=== PATIENT | male | born 1970 | race Caucasian/White ===

== ENCOUNTER 2017-08-26 03:24 | Inpatient (IN) | payer MEDICAID, OTHER ==
[2017-08-26] VITALS (8 sets, daily range): BP systolic 120–135; BP diastolic 71–98
[~2017-08-26] VITALS: Ht 177.8 cm; Wt 113.6 kg
[~2017-08-26 03:24] MED LIST: CYCL5TAB10 PO; GABA300C PO; HYDR-3641 PO; IBUP-2029 PO; S350 PO
[2017-08-26] MEDS ORDERED: IPRATROPIUM BROMIDE (0.02%) 0.5MG/2.5ML NEB HHN STA (03:45)
[2017-08-26] MEDS ORDERED: ALBUTEROL (0.083%) 2.5MG/3ML NEB HHN STA (03:45)
[2017-08-26] MEDS ORDERED: METHYLPREDNISOLONE SOD SUCC 125 MG/2 ML VIAL IV STA (03:45)
[2017-08-26] MEDS ORDERED: MAGNESIUM 2 G PREMIX 50 ML IV STA (03:45)
[2017-08-26] MEDS ORDERED: AZITHROMYCIN 500 MG in DEXT 5% WATER 250 ML IV SCH ×2 (04:00→11:00)
[2017-08-26] MEDS ORDERED: MAGNESIUM 1G PREMIX 100ML IV NR ×2 (04:00→05:00)
[2017-08-26] MEDS ORDERED: CEFTRIAXONE 2 G PREMIX 50 ML IV ONE (04:00)
[2017-08-26 04:15] LABS: HEMATOCRIT 41.8 % (42.0-52.0); HEMOGLOBIN 14.1 g/dL (14.0-18.0); MEAN CORPUSCULAR HEMOGLOBIN 30.2 pg (28.0-32.0); MEAN CORPUSCULAR VOLUME 89.7 fL (80.0-94.0); PLATELET 374 x1000/uL (130-400); RED BLOOD CELL COUNT 4.66 mill/uL (4.7-6.1); RED CELL DISTRIBUTION WIDTH 13.6 % (11.6-14.6)
[2017-08-26 04:22] LABS: CHLORIDE 110 mEq/L (98-107)
[2017-08-26] MEDS ORDERED: LIDOCAINE 5% PATCH TOP SCH (05:30)
[2017-08-26] MEDS ORDERED: NITROGLYCERIN 0.4MG TABLET SL SL PRN (08:15)
[2017-08-26] MEDS ORDERED: NA PHOS,M-B/NA PHOS,DI-BA ENEMA 118ML PR PRN (08:15)
[2017-08-26] MEDS ORDERED: DOCUSATE SODIUM 100MG CAPSULE PO PRN (08:15)
[2017-08-26] MEDS ORDERED: ONDANSETRON HCL 4MG/2ML VIAL IV PRN (08:15)
[2017-08-26] MEDS ORDERED: LORAZEPAM 0.5MG TABLET PO PRN (08:15)
[2017-08-26] MEDS ORDERED: IPRATROPIUM/ALBUTEROL 0.5-3(2.5)MG/3ML NEB INH PRN (08:15)
[2017-08-26] MEDS ORDERED: ENOXAPARIN 40MG/0.4ML SYR SUBCUT SCH (08:15)
[2017-08-26] MEDS ORDERED: GUAIFENESIN 200MG/10ML SUGAR FREE UDC PO PRN (08:15)
[2017-08-26] MEDS ORDERED: ACETAMINOPHEN 325MG TABLET PO PRN (08:15)
[2017-08-26] MEDS ORDERED: CLONIDINE 0.1MG TABLET PO PRN (08:15)
[2017-08-26] MEDS ORDERED: DIPHENHYDRAMINE 50MG/ML VIAL IV PRN (08:15)
[2017-08-26] MEDS ORDERED: MAGNESIUM/ALUMINUM HYDROXIDE/SIMETHICONE 30ML UDC PO PRN (08:15)
[2017-08-26 08:59] LABS: ETHANOL BLOOD < 10 mg/dL
[2017-08-26] MEDS ORDERED: POTASSIUM CHLORIDE 20MEQ TABLET SR PO SCH (09:00)
[2017-08-26 09:04] LABS: HDL CHOLESTEROL 21 mg/dL (40-59); LDL CHOLESTEROL 60 mg/dL (5-100)
[2017-08-26] MEDS ORDERED: ONDANSETRON 4MG ODT PO PRN (09:30)
[2017-08-26] MEDS: AZITHROMYCIN 500 MG in DEXT 5% WATER 250 ML IV SCH (11:30)
[2017-08-26] MEDS: CEFTRIAXONE 1 G PREMIX 50 ML IV SCH (12:38)
[2017-08-26] MEDS: ENOXAPARIN 30MG/0.3ML SYR SUBCUT SCH ×2 (12:38→21:18)
[2017-08-26] MEDS: ASCORBIC ACID 500 MG TABLET PO SCH ×2 (12:39→21:00)
[2017-08-26] MEDS: ASPIRIN 325MG EC TABLET PO SCH (12:39)
[2017-08-26] MEDS: GUAIFENESIN/DM 600MG/30MG ER TAB 12HR PO SCH ×2 (12:39→20:43)
[2017-08-26] MEDS: FAMOTIDINE 20MG TABLET PO SCH ×3 (12:40→20:44)
[2017-08-26] MEDS: ZINC SULFATE 220 MG ( 50 ) CAPSULE PO SCH (12:40)
[2017-08-26] MEDS: DILTIAZEM HCL 60MG TABLET PO SCH ×2 (12:41→18:00)
[2017-08-26] MEDS: METHYLPREDNISOLONE SOD SUCC 125 MG/2 ML VIAL IV SCH ×2 (13:35→21:20)
[2017-08-26] MEDS: IPRATROPIUM/ALBUTEROL 0.5-3(2.5)MG/3ML NEB HHN SCH ×2 (15:30→20:44)
[2017-08-26 15:35] LABS: CREATINE KINASE 31 IU/L (39-308)
[2017-08-26 15:36] LABS: CREATINE KINASE MB FRACTION < 0.5 ng/mL (0.5-3.6)
[2017-08-26] MEDS: KETOROLAC 15MG/ML VIAL IV PRN (20:29)
[2017-08-26] MEDS ORDERED: ZOLPIDEM TARTRATE 5MG TABLET PO PRN (21:00)
[2017-08-26 23:10] LABS: CREATINE KINASE 34 IU/L (39-308)
[2017-08-26 23:11] LABS: CREATINE KINASE MB FRACTION < 0.5 ng/mL (0.5-3.6)
[2017-08-27] VITALS (8 sets, daily range): BP systolic 125–154; BP diastolic 45–97
[2017-08-27] MEDS: DILTIAZEM HCL 60MG TABLET PO SCH ×3 (00:10→11:33)
[2017-08-27] MEDS: IPRATROPIUM/ALBUTEROL 0.5-3(2.5)MG/3ML NEB HHN SCH ×4 (00:14→12:01)
[2017-08-27] MEDS: KETOROLAC 15MG/ML VIAL IV PRN (03:39)
[2017-08-27] MEDS: METHYLPREDNISOLONE SOD SUCC 125 MG/2 ML VIAL IV SCH (06:38)
[2017-08-27] MEDS: CEFTRIAXONE 1 G PREMIX 50 ML IV SCH (08:46)
[2017-08-27] MEDS: GUAIFENESIN/DM 600MG/30MG ER TAB 12HR PO SCH (08:46)
[2017-08-27] MEDS: ASPIRIN 325MG EC TABLET PO SCH (08:46)
[2017-08-27] MEDS: ASCORBIC ACID 500 MG TABLET PO SCH (08:46)
[2017-08-27] MEDS: ZINC SULFATE 220 MG ( 50 ) CAPSULE PO SCH (08:46)
[2017-08-27] MEDS: ENOXAPARIN 30MG/0.3ML SYR SUBCUT SCH (08:46)
[2017-08-27] MEDS: AZITHROMYCIN 500 MG in DEXT 5% WATER 250 ML IV SCH (11:32)
== END 2017-08-27 13:00 | disposition home or self-care (01) | DRG 141 ==
LOC: ER 03:24 → 5EST 04:05 → EDBEDREQ 04:08 → ENRESERV 04:49
PROVIDERS: ADMIT Internal Medicine; ATTEND Internal Medicine
PROC: 5A09357 Assistance with Respiratory Ventilation, Less than 24 Consecutive Hours, Continuous Positive Airway Pressure (ICD-10-PCS; principal; 2017-08-26)
PROC: 5A09357 Assistance with Respiratory Ventilation, Less than 24 Consecutive Hours, Continuous Positive Airway Pressure (ICD-10-PCS; 2017-08-27)
DX: J45.901 Unspecified asthma with (acute) exacerbation (principal); J96.90 Respiratory failure, unspecified, unspecified whether with hypoxia or hypercapnia; J18.9 Pneumonia, unspecified organism; E44.0 Moderate protein-calorie malnutrition; F17.210 Nicotine dependence, cigarettes, uncomplicated; E87.6 Hypokalemia; Z68.35 Body mass index [BMI] 35.0-35.9, adult; Z71.6 Tobacco abuse counseling
CPT/HCPCS: 36415; 71045; 80053; 80061; 82550; 82553; 83036; 83605; 84484; 85027; 87040; 93970; 96365; 96366; 96367; 96375; 99291; G0482; J0456; J0696; J1650; J1885; J2930; J3475; J7040; J7060; J7611; J7620

== ENCOUNTER 2024-08-05 04:50 | Inpatient (IN) | payer MEDICAID ==
[~2024-08-05] VITALS: Ht 177.8 cm; Wt 113.9 kg
[~2024-08-05 04:50] MED LIST changes: +CARI-518 PO; -S350 PO
[2024-08-05] MEDS: LABETALOL 5MG/ML 4ML INJ IV ONE (05:54)
[2024-08-05] MEDS: ONDANSETRON HCL 4MG/2ML INJ IV ONE (05:55)
[2024-08-05 06:06] LABS: BASOPHILS % 0.4 % (0.0-2.0); EOSINOPHILS % 4.8 % (0.0-5.0); HEMATOCRIT. 41.6 % (42.0-52.0); LYMPHOCYTES % 12.7 % (20.0-50.0); MEAN CORPUSCULAR HEMOGLOBIN 30.1 pg (28.0-32.0); MEAN CORPUSCULAR HGB CONC 33.7 g/dL (31.0-37.0); MEAN CORPUSCULAR VOLUME 89.4 fL (80.0-94.0); MEAN PLATELET VOLUME 9.5 fl (7.4-10.4); MONOCYTES % 7.4 % (2.0-8.0); NEUTROPHILS % 74.7 % (40.0-76.0); PLATELET 161 x1000/uL (130-400); RED BLOOD CELL COUNT 4.66 mill/uL (4.7-6.1); RED CELL DISTRIBUTION WIDTH 13.7 % (11.6-14.6); WHITE BLOOD COUNT 5.9 x1000/uL (4.5-11.0)
[2024-08-05 06:15] LABS: CHLORIDE 103 mEq/L (98-107); POTASSIUM 3.7 mEq/L (3.5-5.1); SODIUM 138 mEq/L (136-145)
[2024-08-05 06:16] LABS: CARBON DIOXIDE 27 mEq/L (21-32)
[2024-08-05 06:17] LABS: CALCIUM 8.9 mg/dL (8.7-10.4)
[2024-08-05 06:21] LABS: CREATININE 0.7 mg/dL (0.6-1.3); GLUCOSE 100 mg/dL (70-105)
[2024-08-05 06:22] LABS: TROPONIN I HIGH SENSITIVITY < 4 ng/L (3.0-53); UREA NITROGEN BLOOD 11 mg/dL (9-23)
[2024-08-05 06:23] LABS: ALANINE AMINOTRANSFERASE 12 IU/L (10-49); ALBUMIN 4.2 g/dL (3.2-4.8); ASPARTATE AMINOTRANSFERASE 16 IU/L (<34)
[2024-08-05 06:24] LABS: BILIRUBIN DIRECT 0.2 mg/dL (<=3.0); BILIRUBIN TOTAL 0.6 mg/dL (0.1-1.0); PROTEIN TOTAL 6.7 g/dL (6.0-8.3)
[2024-08-05] MEDS: ACETAMINOPHEN 325MG TABLET PO ONE (07:14)
[2024-08-05 07:43] LABS: TROPONIN I HIGH SENSITIVITY < 4 ng/L (3.0-53)
[2024-08-05 08:00] VITALS: BP 136/89; PULSE 76; RESP 20; TEMP 36.6; O2SAT 97
[2024-08-05 09:00] VITALS: BP 136/89; PULSE 76; RESP 20; TEMP 36.6
[2024-08-05] MEDS ORDERED: IOHEXOL-350 100 ML BOTTLE ONE (09:50)
[2024-08-05] MEDS ORDERED: MAGNESIUM/ALUMINUM HYDROXIDE/SIMETHICONE 30ML UDC PO PRN (11:45)
[2024-08-05] MEDS ORDERED: DOCUSATE SODIUM 100MG CAPSULE PO PRN (11:45)
[2024-08-05] MEDS ORDERED: DEXTROSE 50% WATER 50ML SYRINGE IV PRN (11:45)
[2024-08-05] MEDS ORDERED: ONDANSETRON HCL 4MG/2ML INJ IV PRN (11:45)
[2024-08-05] MEDS ORDERED: IPRATROPIUM/ALBUTEROL 0.5-3(2.5)MG/3ML NEB HHN PRN (11:45)
[2024-08-05] MEDS ORDERED: GUAIFENESIN 200MG/10ML SUGAR FREE UDC PO PRN (11:45)
[2024-08-05 12:00] VITALS: BP 143/96; PULSE 72; RESP 20; TEMP 36.7; O2SAT 100
[2024-08-05 12:13] LABS: CLARITY URINE CLEAR (CLEAR); COLOR URINE YELLOW (YELLOW); GLUCOSE URINE NEGATIVE (NEGATIVE); KETONES URINE NEGATIVE (NEGATIVE); LEUKOCYTE ESTERASE URINE NEGATIVE (NEGATIVE); NITRITE URINE NEGATIVE (NEGATIVE); OCCULT BLOOD URINE NEGATIVE (NEGATIVE); PROTEIN URINE TRACE (NEGATIVE); SPECIFIC GRAVITY URINE 1.006 (1.005-1.030); UROBILINOGEN URINE 0.2 E.U./dL (0.2-1.0)
[2024-08-05] MEDS ORDERED: VALS1TAB76 MT (12:37)
[2024-08-05] MEDS: LOSARTAN 50 MG TABLET PO SCH (12:46)
[2024-08-05 12:47] LABS: *AMPHETAMINES SCREEN URINE NEGATIVE (NEGATIVE)
[2024-08-05 12:48] LABS: *BARBITURATES SCREEN URINE NEGATIVE (NEGATIVE); *BENZODIAZEPINES SCREEN URINE NEGATIVE (NEGATIVE); *COCAINE SCREEN URINE NEGATIVE (NEGATIVE); CANNABINOID URINE SCREEN NEGATIVE (NEGATIVE); ECSTASY MDMA SCREEN URINE NEGATIVE (NEGATIVE); METHADONE URINE SCREEN NEGATIVE (NEGATIVE); OPIATES URINE SCREEN NEGATIVE (NEGATIVE); PHENCYCLIDINE URINE SCREEN NEGATIVE (NEGATIVE)
[2024-08-05 12:55] LABS: RBC URINE NONE SEEN /hpf (0-2); SQUAMOUS EPITHELIAL CELL URINE RARE /lpf (RARE/1+); WBC URINE 0-2 /hpf (0-2)
[2024-08-05 12:56] LABS: BACTERIA URINE NONE SEEN
[2024-08-05] MEDS: ACETAMINOPHEN 325MG TABLET PO PRN (13:15)
[2024-08-05 16:00] VITALS: BP 135/88; PULSE 70; RESP 20; TEMP 36.7; O2SAT 100
[2024-08-05 16:32] LABS: TROPONIN I HIGH SENSITIVITY < 4 ng/L (3.0-53)
[2024-08-05 16:33] LABS: CREATINE KINASE 104 IU/L (46-171)
[2024-08-05 20:00] VITALS: BP 148/93; PULSE 80; RESP 20; TEMP 36.4; O2SAT 98
[2024-08-05] MEDS: AMLODIPINE 10MG TABLET PO SCH (21:21)
[2024-08-05] MEDS: FAMOTIDINE 20MG TABLET PO SCH (21:21)
[2024-08-06] VITALS: BP 163/95; PULSE 76; RESP 20; TEMP 36.4; O2SAT 98
[2024-08-06] MEDS: CLONIDINE 0.1MG TABLET PO PRN (00:16)
[2024-08-06 00:33] LABS: CREATINE KINASE 100 IU/L (46-171); TROPONIN I HIGH SENSITIVITY < 4 ng/L (3.0-53)
[2024-08-06 04:00] VITALS: BP 142/94; PULSE 93; RESP 20; TEMP 36.3; O2SAT 97
[2024-08-06 06:48] LABS: BASOPHILS % 0.1 % (0.0-2.0); HEMATOCRIT. 45.6 % (42.0-52.0); HEMOGLOBIN. 15.3 g/dL (14.0-18.0); LYMPHOCYTES % 8.9 % (20.0-50.0); MEAN CORPUSCULAR HEMOGLOBIN 30.1 pg (28.0-32.0); MEAN CORPUSCULAR HGB CONC 33.7 g/dL (31.0-37.0); MEAN CORPUSCULAR VOLUME 89.4 fL (80.0-94.0); MONOCYTES % 5.7 % (2.0-8.0); NEUTROPHILS % 84.3 % (40.0-76.0); PLATELET 178 x1000/uL (130-400); RED CELL DISTRIBUTION WIDTH 13.8 % (11.6-14.6); WHITE BLOOD COUNT 7.8 x1000/uL (4.5-11.0)
[2024-08-06 06:58] LABS: CARBON DIOXIDE 26 mEq/L (21-32); CHLORIDE 105 mEq/L (98-107); POTASSIUM 3.9 mEq/L (3.5-5.1); SODIUM 141 mEq/L (136-145)
[2024-08-06 06:59] LABS: CALCIUM 9.6 mg/dL (8.7-10.4)
[2024-08-06 07:03] LABS: CREATININE 0.8 mg/dL (0.6-1.3)
[2024-08-06 07:04] LABS: GLUCOSE 110 mg/dL (70-105); LDL CHOLESTEROL 100 mg/dL (5-100); TRIGLYCERIDE 125 mg/dL (0-150); UREA NITROGEN BLOOD 11 mg/dL (9-23)
[2024-08-06 07:06] LABS: CHOLESTEROL 159 mg/dL (<200); HDL CHOLESTEROL 43 mg/dL (>55)
[2024-08-06 07:07] LABS: T4 FREE 1.02 ng/dL (0.89-1.76)
[2024-08-06 07:08] LABS: THYROID STIMULATING HORMONE 0.17 uIU/mL (0.55-4.78)
[2024-08-06 08:00] VITALS: BP 149/93; PULSE 89; RESP 18; TEMP 36.5; O2SAT 99
[2024-08-06] MEDS ORDERED: CLON0.1T PO (11:40)
[2024-08-06] MEDS ORDERED: AMLO-905 MT (11:40)
[2024-08-06 12:00] VITALS: BP 130/97; PULSE 92; RESP 18; TEMP 36.6; O2SAT 96
[2024-08-06 16:00] VITALS: BP 139/93; PULSE 96; RESP 18; TEMP 36.4; O2SAT 98
[2024-08-06 18:23] VITALS: BP 139/93; PULSE 96; TEMP 97.5; O2SAT 98
[2024-08-07] MEDS ORDERED: HYDROCHLOROTHIAZIDE 12.5MG CAPSULE PO SCH (09:00)
== END 2024-08-06 19:45 | disposition home or self-care (01) | DRG 199 ==
LOC: ER 04:50 → 8WST 07:07 → EDBEDREQTM 07:31 → EDBEDREQ 07:31 → ENRESERV 07:55
PROVIDERS: ADMIT Hospitalist; ATTEND Hospitalist
DX: I10 Essential (primary) hypertension (principal); J45.909 Unspecified asthma, uncomplicated; R07.89 Other chest pain; R20.2 Paresthesia of skin; Z66 Do not resuscitate; Z82.49 Family history of ischemic heart disease and other diseases of the circulatory system; Z83.3 Family history of diabetes mellitus; Z88.8 Allergy status to other drugs, medicaments and biological substances
CPT/HCPCS: 36415; 71045; 71275; 80048; 80061; 80076; 80305; 81003; 82550; 83036; 83735; 84439; 84443; 84484; 85025; 93005; 99291; A4606; J2405; J3490; Q9967